=== PATIENT | female | born 1985 | race African-American/Black ===

== ENCOUNTER → 2022-10-08 | Outpatient (CLI) | payer BC ==
[2022-10-08 11:49] LABS: Basophils # (auto) 0 10 ^3/uL (0-0.2); Basophils % (auto) 0.9 % (0.0-2.0); Eosinophils # (auto) 0.2 10 ^3/uL (0-0.8); Eosinophils % (auto) 3.2 % (0.0-7.0); Hematocrit 36.7 % (36.0-46.0); Hemoglobin 12.3 g/dL (12.2-16.2); Lymphocytes # (auto) 2.2 10 ^3/uL (0.4-5.4); Lymphocytes % (auto) 44.7 % (10.0-50.0); Mean Corpuscular Hemoglobin 29.8 pg (28.0-32.0); Mean Corpuscular Hgb Conc. 33.6 g/dL (32.0-36.0); Mean Corpuscular Volume 88.6 fL (80.0-100.0); Monocytes # (auto) 0.3 10 ^3/uL (0-1.3); Monocytes % (auto) 6.6 % (0.0-12.0); Neutrophils # (auto) 2.2 10 ^3/uL (1.6-8.6); Neutrophils % (auto) 44.6 % (37.0-80.0); Nucleated Red Blood Cells % 0.1 %; Red Blood Cells 4.15 10^6/uL (4.0-5.20); Red Cell Distribution Width 14.3 % (11.8-14.3); White Blood Cell 4.9 10^3/uL (4.4-10.8)
[2022-10-08 12:31] LABS: Urine Bacteria NONE SEEN /hpf (None Seen); Urine Blood Negative /uL (Negative); Urine Mucus FEW (None Seen); Urine Specific Gravity 1.031 (1.001-1.035); Urine WBC 2 /hpf (0 - 5)
[2022-10-08 12:43] LABS: Potassium 3.8 mmol/L (3.5-5.1)
[2022-10-08 13:00] LABS: Bilirubin, Total 0.7 mg/dL (0.2-1.0); Total Protein 7.5 g/dL (6.4-8.2)
[2022-10-10 23:06] LABS: IgE Mouse Urine <0.10 kU/L (Class 0)
== END | disposition home or self-care (01) ==
LOC: LAB 11:25
PROVIDERS: ATTEND Student in an Organized Health Care Education/Training Program
DX: E55.9 Vitamin D deficiency, unspecified (principal); K73.9 Chronic hepatitis, unspecified; R03.0 Elevated blood-pressure reading, without diagnosis of hypertension; J30.2 Other seasonal allergic rhinitis
CPT/HCPCS: 36415; 80053; 80061; 81001; 82306; 82785; 83036; 84439; 84443; 85025

== ENCOUNTER 2023-01-23 06:23 | Day surgery (SDC) | payer BC, MEDICAID ==
[2023-01-22 13:41] LABS: Basophils # (auto) 0 10 ^3/uL (0-0.2); Basophils % (auto) 0.5 % (0.0-2.0); Eosinophils # (auto) 0.2 10 ^3/uL (0-0.8); Eosinophils % (auto) 3.6 % (0.0-7.0); Hematocrit 38.2 % (36.0-46.0); Hemoglobin 12.4 g/dL (12.2-16.2); Lymphocytes # (auto) 1.9 10 ^3/uL (0.4-5.4); Lymphocytes % (auto) 30.7 % (10.0-50.0); Mean Corpuscular Hemoglobin 28.9 pg (28.0-32.0); Mean Corpuscular Hgb Conc. 32.5 g/dL (32.0-36.0); Mean Corpuscular Volume 88.9 fL (80.0-100.0); Monocytes # (auto) 0.3 10 ^3/uL (0-1.3); Monocytes % (auto) 5.1 % (0.0-12.0); Neutrophils # (auto) 3.7 10 ^3/uL (1.6-8.6); Neutrophils % (auto) 60.1 % (37.0-80.0); White Blood Cell 6.1 10^3/uL (4.4-10.8)
[2023-01-22 13:46] LABS: Urine Bacteria NONE SEEN /hpf (None Seen); Urine Blood Negative /uL (Negative); Urine Mucus FEW (None Seen); Urine Specific Gravity 1.018 (1.001-1.035); Urine WBC 1 /hpf (0 - 5)
[2023-01-22 13:56] LABS: INR 1.01 (0.9-1.15); Partial Thromboplastin Time 26.7 sec (24.6-33.4)
[2023-01-22 15:15] LABS: Calcium 8.5 mg/dL (8.5-10.1); Potassium 3.7 mmol/L (3.5-5.1)
[2023-01-22 15:19] LABS: BUN/Creatinine Ratio 6.5 (10.0-20.0); Bilirubin, Total 0.5 mg/dL (0.2-1.0); Total Protein 7.7 g/dL (6.4-8.2)
[~2023-01-23] VITALS: Ht 157.5 cm; Wt 95.3 kg
[2023-01-23] MEDS ORDERED: ceFAZolin 1GM/50ML 100 ML IV ONE (06:55)
[2023-01-23] MEDS ORDERED: HYDR-4902 PO (07:07)
[2023-01-23] MEDS ORDERED: ZOFR4T PO (07:07)
[2023-01-23] MEDS ORDERED: ROCURONIUM 10MG/ML 10ML VIAL IV ONE (07:11)
[2023-01-23] MEDS ORDERED: fentaNYL CITRATE 5 ML ONE (07:11)
[2023-01-23] MEDS ORDERED: MIDAZOLAM HCL 2MG/2ML 2ml VIAL (1mg/ml) ONE (07:11)
[2023-01-23] MEDS ORDERED: PROPOFOL 10 MG/ML 20 ML IV ONE (07:12)
[2023-01-23] MEDS ORDERED: LIDOCAINE 2% (LOCAL ANESTH.) PF 5ml SDV ONE (07:12)
[2023-01-23] MEDS ORDERED: ONDANSETRON HCL 4 MG/2 ML VIAL ONE (07:12)
[2023-01-23] MEDS ORDERED: LACTATED RINGER'S 1,000 ML IV SCH ×2 (07:15→08:15)
[2023-01-23] MEDS ORDERED: ONDANSETRON HCL 4 MG/2 ML VIAL IV PRN ×3 (07:15→08:30)
[2023-01-23] MEDS ORDERED: GLYCOPYRROLATE 0.2 MG/ML 1ML VIAL ONE (08:08)
[2023-01-23] MEDS ORDERED: NEOSTIGMINE 1 MG/ML INJ (10mg/10ML VIAL) ONE (08:08)
[2023-01-23] MEDS ORDERED: HYDROmorphone HCL 2 MG/ML VL/or syr IV PRN (08:30)
[2023-01-23] MEDS: HYDROmorphone HCL 2 MG/ML VL/or syr IV PRN ×2 (08:42→08:52)
[2023-01-23 09:45] VITALS: BP 124/82
== END 2023-01-23 09:45 | disposition home or self-care (01) ==
LOC: SUR 06:23
PROVIDERS: ATTEND Obstetrics & Gynecology
DX: Z30.2 Encounter for sterilization (principal); E66.01 Morbid (severe) obesity due to excess calories; J45.909 Unspecified asthma, uncomplicated; Z98.890 Other specified postprocedural states
CPT/HCPCS: 36415; 58671; 80053; 81001; 81025; 84702; 85025; 85610; 85730; 86850; 86900; 86901; J0690; J1170; J2001; J2250; J2405; J2704; J3010

== ENCOUNTER 2023-02-16 19:31 | Emergency (ER) | payer BC, MEDICAID ==
[~2023-02-16] VITALS: Ht 157.5 cm; Wt 97.0 kg
[~2023-02-16 19:31] MED LIST: HYDR-4902 PO; ZOFR4T PO
[2023-02-16 19:58] LABS: Basophils # (auto) 0.1 10 ^3/uL (0-0.2); Basophils % (auto) 1.5 % (0.0-2.0); Eosinophils # (auto) 0.2 10 ^3/uL (0-0.8); Eosinophils % (auto) 3.3 % (0.0-7.0); Hematocrit 36.4 % (36.0-46.0); Hemoglobin 12.4 g/dL (12.2-16.2); Lymphocytes # (auto) 2.9 10 ^3/uL (0.4-5.4); Lymphocytes % (auto) 38.7 % (10.0-50.0); Mean Corpuscular Hemoglobin 30.3 pg (28.0-32.0); Mean Corpuscular Hgb Conc. 34.1 g/dL (32.0-36.0); Mean Corpuscular Volume 88.7 fL (80.0-100.0); Monocytes # (auto) 0.6 10 ^3/uL (0-1.3); Monocytes % (auto) 7.4 % (0.0-12.0); Neutrophils # (auto) 3.7 10 ^3/uL (1.6-8.6); Neutrophils % (auto) 49.1 % (37.0-80.0); Nucleated Red Blood Cells % 0.2 %; Red Cell Distribution Width 14.5 % (11.8-14.3); White Blood Cell 7.5 10^3/uL (4.4-10.8)
[2023-02-16] MEDS ORDERED: ASPirin 325 MG TAB PO ONE (20:00)
[2023-02-16 20:16] LABS: Partial Thromboplastin Time 25.4 SEC (24.5-34.5)
[2023-02-16 20:19] LABS: Albumin 3.9 g/dL (3.4-5.0); Calcium 8.7 mg/dL (8.5-10.1); Magnesium 2.4 mg/dL (1.6-2.6); Potassium 4.2 mmol/L (3.5-5.1)
[2023-02-16 20:21] LABS: BUN/Creatinine Ratio 8.2 (10.0-20.0); Bilirubin, Total 0.4 mg/dL (0.2-1.0); Total Protein 7.7 g/dL (6.4-8.2)
[2023-02-16 22:54] LABS: Urine Bacteria NONE SEEN /hpf (None Seen); Urine Blood Negative /uL (Negative); Urine Specific Gravity 1.023 (1.001-1.035); Urine WBC 2 /hpf (0 - 5)
[2023-02-16 23:05] LABS: Alcohol, Urine < 3.0 mg/dL (0-10); Amphetamine Screen, Urine NEGATIVE (NEGATIVE); Barbiturate Scree,Urine NEGATIVE (NEGATIVE); Benzodiazephine Screen, Urine NEGATIVE (NEGATIVE); Cannabinoid Screen, Urine NEGATIVE (NEGATIVE); Cocaine Screen, Urine NEGATIVE (NEGATIVE); Opiate Scree,Urine NEGATIVE (NEGATIVE); Phencyclidine Screen, Urine NEGATIVE (NEGATIVE)
[2023-02-16 23:48] VITALS: BP 107/71
[2023-02-17] MEDS ORDERED: PHEN95TA10 PO (00:36)
[2023-02-17] MEDS ORDERED: ACET-6 PO (00:36)
[2023-02-17] MEDS ORDERED: CEPH500T PO (00:36)
[2023-02-17] MEDS ORDERED: CEPHALEXIN 250 MG CAP PO ONE (00:45)
== END 2023-02-17 01:08 | disposition home or self-care (01) ==
LOC: ER 19:34
DX: N39.0 Urinary tract infection, site not specified (principal); J45.909 Unspecified asthma, uncomplicated; Z79.899 Other long term (current) drug therapy
CPT/HCPCS: 36415; 71045; 80053; 80307; 81001; 83735; 83880; 84484; 85025; 85379; 85610; 85730; 93005

== ENCOUNTER 2023-12-20 09:54 | Emergency (ER) | payer BC, MEDICAID ==
[~2023-12-20] VITALS: Ht 157.5 cm; Wt 92.9 kg
[~2023-12-20 09:54] MED LIST changes: +ACET-6 PO; +CEPH500T PO; +PHEN95TA10 PO
[2023-12-20 10:49] VITALS: BP 125/69; PULSE 88; RESP 20; TEMP 98.6; O2SAT 99
[2023-12-20] MEDS ORDERED: NAPR-746 PO (11:52)
== END 2023-12-20 11:54 | disposition home or self-care (01) ==
LOC: ER 09:54
DX: S69.81XA Other specified injuries of right wrist, hand and finger(s), initial encounter (principal); J45.909 Unspecified asthma, uncomplicated; Z79.899 Other long term (current) drug therapy; X58.XXXA Exposure to other specified factors, initial encounter; Y93.89 Activity, other specified; Y92.89 Other specified places as the place of occurrence of the external cause; Y99.8 Other external cause status
CPT/HCPCS: 11730